=== PATIENT | female | born 1960 | race Caucasian/White ===

== ENCOUNTER 2019-02-26 07:06 | Inpatient (IN) | payer OTHER ==
[2019-02-14 09:20] LABS: HEMATOCRIT 43.3 % (37.0-47.0); HEMOGLOBIN 14.9 gm/dL (12.0-15.0); MCH 31.8 pg (26.0-34.0); MCHC 34.4 g/dL (28.0-37.0); MCV 92.4 fL (80.0-100.0); MPV 9.4 fl. (7.2-11.1); RBC 4.69 mil/uL (4.20-5.00); RDW-CV 14.2 % (10.5-14.5); WBC 2.7 thou/uL (4.0-11.0)
[2019-02-14 09:28] LABS: URINE BILIRUBIN NEGATIVE (Negative); URINE BLOOD NEGATIVE (Negative); URINE CLARITY CLEAR; URINE COLOR YELLOW; URINE GLUCOSE-RANDOM NEGATIVE (Negative); URINE KETONES NEGATIVE (Negative); URINE LEUKOCYTES-REFLEX NEGATIVE (Negative); URINE NITRITE-REFLEX NEGATIVE (Negative); URINE PROTEIN NEGATIVE (Negative); URINE SPECIFIC GRAVITY <= 1.005 (1.005-1.030); URINE UROBILINOGEN 0.2 E.U./dl (0.2-1.0)
[2019-02-14 09:31] LABS: ALBUMIN 3.8 g/dL (3.4-5.0); CALCIUM 9.4 mg/dL (8.5-10.1); CREATININE 0.9 mg/dL (0.6-1.3); TOTAL BILIRUBIN 0.5 mg/dL (<0.1-1.0); TOTAL PROTEIN 7.2 g/dL (6.4-8.2)
--- NOTE | 2019-02-14 10:34 | EKG ---
[place] [address] ELECTROCARDIOGRAM REPORT Name: EMILY VILLA Room: PRE IN [facility].#: [id number] Admission: Attend Phys: Dee Rucker Discharge: Date of : 64 Report #: [id number] THIS REPORT FOR: //name// [facility] Test Date: 2019-02-14 Test Time: 09:18:30 Pat Name: EMILY VILLA Department: Room: Gender: F [employer]aking [employer] Worker: : 1960 Requested By: Matthieu Welch Order Number: [id number] Reading MD: Timothy Deras Measurements Intervals [place] Rate: 71 P: 45 KS: 173 QRS: -5 QRSD: 106 T: 22 QT: 405 QTc: 441 Interpretive Statements Sinus rhythm Probable left atrial enlargement Low voltage, precordial leads RSR' in V1 or V2, right VCD or RVH No previous ECG available for comparison Electronically Signed On 02-14-2019 10:34:06 RN INTAKE by Timothy Deras [email or web address] <ELECTRONICALLY SIGNED> By: Timothy Deras MD, [facility] 02/14/19 1034 7 7 Timothy Deras MD, FACC /EPI
[~2019-02-26] VITALS: Ht 165.1 cm; Wt 121.1 kg
[~2019-02-26 07:06] MED LIST: FISH OIL 1,0001 EAC9 PO; FLEXERIL PO; GLUCOSAMINE HC500 M1 PO; MELOXICAM15 MG PO; MULTIVITAMINS1 EAC7 PO; NORCO 5-325 TA1 EAC1 PO; PRILOSEC OTC20 MG PO; TYLENOL EXTRA500 MG PO; VITAMIN D22000 UNIT PO
[2019-02-26 17:34] VITALS: BP 151/93
[2019-02-26 19:30] VITALS: BP 154/84
[2019-02-27] VITALS: BP 122/78
--- NOTE | 2019-02-27 03:24 | NUR ---
ASSUMED CARE FROM DAY SHIFT PT RESTING IN BED PAIN MEDICATION TAKEN AND PAIN LEVEL DOWN TO 5 UP TO BSC WITH ASSIST OF ONE , IV FLUIDS STARTED ORDERED. RIGHT KNEE WITH DRY AND INTACT DRESSING, POLAR PACK TO KNEE. DISCUSSED PLAN OF CARE PT AGREEABLE. PAIN MEDICATION GIVEN OTC FOR COMFORT. PT RESTED WELL THROUGHOUT HOURLY ROUNDS.WILL CONITNUE WITH CURRENT PLAN OF CARE.
[2019-02-27 04:00] VITALS: BP 149/78
[2019-02-27 04:12] LABS: HEMATOCRIT 35.1 % (37.0-47.0); HEMOGLOBIN 11.8 gm/dL (12.0-15.0); MCHC 33.7 g/dL (28.0-37.0); MCV 92.2 fL (80.0-100.0); MPV 9.2 fl. (7.2-11.1); NUCLEATED RBCS 0 /100WBC; PLATELET COUNT* 174 thou/uL (150-400); RBC 3.81 mil/uL (4.20-5.00); RDW-CV 13.6 % (10.5-14.5); WBC 6.7 thou/uL (4.0-11.0)
[2019-02-27 04:46] LABS: CALCIUM 8.4 mg/dL (8.5-10.1); CREATININE 0.9 mg/dL (0.6-1.3); MAGNESIUM 1.9 mg/dL (1.8-2.4); POTASSIUM 4.2 mmol/L (3.5-5.1)
[2019-02-27 06:03] LABS: ABSOLUTE EOSINOPHILS 0.1 thou/uL (0.0-0.7); ABSOLUTE LYMPHOCYTES 0.4 thou/uL (0.8-5.3); ABSOLUTE MONOCYTES 0.1 thou/uL (0.0-1.2); ABSOLUTE NEUTROPHILS 6.1 thou/uL (1.6-8.1); ANISOCYTOSIS 1+; PLATELET ESTIMATE ADEQUATE
[2019-02-27 06:04] LABS: POIKILOCYTOSIS 1+
[2019-02-27 08:00] VITALS: BP 148/72
[2019-02-27] MEDS ORDERED: XARELTO10 MG PO (10:05)
[2019-02-27] MEDS ORDERED: DOK PLUS TABLE1 EACH PO (10:05)
[2019-02-27] MEDS ORDERED: PERCOCET 5-3251 EACH PO (10:25)
[2019-02-27 13:52] VITALS: BP 148/72
--- NOTE | 2019-02-27 14:00 | NUR ---
PT.READY TO DISCHARGE. CM HAD NOT SEEN HER YET. PER KIMRN, SHE WANTED TO USE [facility] BUT OK WITH [facility], HER INSURANCE NOT IN NETWORK WITH [facility]. CM FAXED REFERRAL AND DISCHARGE ORDERS TO [facility]. CALL FROM [facility] AND SAID THEY GOT REFERRAL AND WILL SEE PT.TOMRROW. PT.HAS A FWW ALTHOUGH DID NOT USE PRIOR TO SURGERY. WILL BE WITH HER AT HOME. SHE USEES [facility] FOR HER MEDS. KIM SAID SHE FAXED PRESCRIPTION OVER TO [facility]. PT'S FAMILY WILL WANT AD SUPERVISOR TOMORROW FOR HER AT [facility].
--- NOTE | 2019-02-27 17:36 | NUR ---
LATE ENTRY-RECIEVED O.T. EVAL AND TX ORDER. WILL DEFER TO P.T. AT THIS TIME. PLEASE ORDER FURTHER O.T. SERVICES IF NEEDED.
--- NOTE | 2019-02-27 22:52 | OP ---
[facility] [address] [place] [address] OPERATIVE REPORT Name: VILLAEMILY AGUSTO Room: [address] M.R.#: [id number] Admission: 02/26/19 Attend Phys: Dee Rucker Discharge: 02/27/19 Date of : 64 Report #: [id number] THIS REPORT FOR: //name// CC: Sheldon Juarez DATE OF SERVICE: 02/26/2019 PREOPERATIVE DIAGNOSIS: Right knee osteoarthritis. POSTOPERATIVE DIAGNOSIS: Right knee osteoarthritis. PROCEDURE: Right total knee arthroplasty. SURGEON: Matthieu Welch II, DO CHANGE MANAGEMENT EXPERT: KRISS Dupont. ANESTHESIA: General endotracheal. ESTIMATED BLOOD LOSS: 50 mL. ANTIBIOTICS: Ancef preoperatively. DRAINS: Medium Hemovac. COMPLICATIONS: None. CONDITION OF THE PATIENT: Stable to recovery room. IMPLANTS: Listed in the operative record and progress note. BRIEF HISTORY: The patient was seen in the preoperative area. Preoperative H and P was performed. Site was marked, questions were answered. Risks and benefits were discussed with the patient in detail about the surgery. The patient wished to proceed assuming all risks. DESCRIPTION OF PROCEDURE: The patient was taken to the operative suite and placed supine on the operating table, given appropriate anesthesia. A well-padded tourniquet was applied to the upper thigh, which was inflated to 300 mmHg after gravity exsanguination. The operative knee was sterilely prepped and draped. Surgery began by midline incision. This was carried down through the subcutaneous tissues. A medial parapatellar arthrotomy was performed and carried down to bone. Patella was then everted and the excess soft tissue removed from around the femur. Femoral cutting block was then applied, checked [facility] [address] [place] [address] OPERATIVE REPORT Name: EMILY VILLA Room: [address] [place] .R.#: [id number] Admission: 02/26/19 Attend Phys: Dee Rucker Discharge: 02/27/19 Date of : 64 Report #: [id number] with a drop gavin for rotational alignment, pinned in appropriate position and appropriate cuts were made. A 4-in-1 cutting block was then applied, checked for appropriate alignment, pinned in appropriate position and appropriate cuts were made. The tibia was exposed. Excess meniscus was removed. Retractor was placed on the collateral ligaments. The tibial cutting block was applied, pinned in appropriate position, checked with a drop gavin for rotational alignment and slope and appropriate cut was made. The tibial bone was removed. Tibial base plate was then applied, checked for rotational alignment with the drop gavin and pinned into appropriate position. The femur was then applied and box cut was reamed. This was then trialed with appropriate spacer, which showed excellent fit and fill and excellent stability of the knee through all range of motion. Patella was reamed in appropriate fashion and sized to appropriate size. Three peg holes were drilled and it was then trialed and showed excellent flexion, extension, excellent tracking in the patellofemoral groove. These trials were removed. The tibia was punched in appropriate fashion. Bone ends were cleansed with Pulsavac irrigation and cement was mixed and applied to final implants. These were then malleted into position and held the knee in extension and compressed to allow cement to cure. After it cured, excess was removed using a [place] and osteotome. Wound was then copiously irrigated and the final spacer was then malleted into position. The tourniquet was deflated. Hemostasis was obtained with electrocautery. Pain cocktail was injected. PRP gel sprayed throughout internal aspects of the knee. Medium Hemovac drain was applied. Capsule was closed with #2 FiberWire and #1 Vicryl in [id number] fashion. Skin was closed with 2-0 Vicryl and a running 3-0 Monocryl. Dermabond and sterile dressing applied. Wilmar wrap and PolarCare applied. The patient transported to the recovery room in stable condition. Counts were correct throughout the procedure. <ELECTRONICALLY SIGNED> By: Matthieu Welch II, DO 02/27/19 2252 [id number] Welch II, DO /nt
== END 2019-02-27 15:35 | disposition home health service (06) | DRG 470 ==
LOC: M.PRE 07:06 → M.TBA 09:46 → M.PRE 10:54 → M.ORTHSURG 16:25
PROVIDERS: Family Medicine; Orthopaedic Surgery; ADMIT Internal Medicine
PROC: 0SRC0J9 Replacement of Right Knee Joint with Synthetic Substitute, Cemented, Open Approach (ICD-10-PCS; principal; 2019-02-26)
DX: M17.11 Unilateral primary osteoarthritis, right knee (principal); D62 Acute posthemorrhagic anemia; Z68.41 Body mass index [BMI] 40.0-44.9, adult; Z96.649 Presence of unspecified artificial hip joint; Z96.652 Presence of left artificial knee joint; G47.33 Obstructive sleep apnea (adult) (pediatric); K21.9 Gastro-esophageal reflux disease without esophagitis; E66.01 Morbid (severe) obesity due to excess calories; Z88.8 Allergy status to other drugs, medicaments and biological substances